=== PATIENT | male | born 1960 | race Caucasian/White ===

== ENCOUNTER 2018-01-23 22:20 | Observation (INO) | payer OTHER ==
[~2018-01-23] VITALS: Ht 172.7 cm; Wt 127.2 kg
[2018-01-23 22:49] LABS: HEMATOCRIT 38.8 % (38.0-50.0); HEMOGLOBIN 13.7 G/DL (12.5-16.6); MCH 30.9 PG (29.0-34.0); MCHC 35.3 G/DL (30.0-36.0); MCV 87.4 FL (86-99); PLATELET COUNT 259 K/uL (156-360); RBC DIS.WIDTH-CV 12.2 % (11.8-14.6); RBC DIS.WIDTH-SD 39.4 % (39-53); RED BLOOD COUNT 4.44 M/uL (4.00-5.50); WHITE BLOOD COUNT 13.8 K/uL (4.1-10.2)
[2018-01-23 22:59] LABS: CHLORIDE 104 mEq/L (99-109); POTASSIUM 4.5 mEq/L (3.7-5.4); SODIUM 139 mEq/L (136-147)
[2018-01-23 23:01] LABS: GLUCOSE 105 mg/dL (70-99)
[2018-01-23 23:05] LABS: CREATININE 1.2 mg/dL (0.6-1.3); GFR ESTIMATE (CALCULATED) > 59 mL/min/ (58.99-99999)
[2018-01-23 23:06] LABS: UREA NITROGEN (BUN) 38 mg/dL (9-23)
[2018-01-23 23:10] LABS: TROP-I INTERPRETATION NEGATIVE; TROPONIN-I < 0.01 ng/mL (0.0-0.30)
[2018-01-24 05:41] LABS: ALBUMIN 3.4 g/dL (3.2-4.8)
[2018-01-24 05:42] LABS: MAGNESIUM 1.8 mg/dL (1.3-2.7)
[2018-01-24 05:45] LABS: TOTAL BILIRUBIN 0.7 mg/dL (0.0-1.0)
[2018-01-24 05:46] LABS: ALKALINE PHOSPHATASE 65 IU/L (3-129)
[2018-01-24 05:49] LABS: AST (GOT) 50 IU/L (2-34); DIRECT BILIRUBIN 0.4 mg/dL (0.0-0.3)
[2018-01-24 05:50] LABS: ALT (GPT) 65 IU/L (3-49); LIPASE 67 U/L (1.0-51.0)
[2018-01-24 05:56] LABS: TROP-I INTERPRETATION NEGATIVE; TROPONIN-I < 0.01 ng/mL (0.0-0.30)
[2018-01-24 06:14] LABS: SERUM ETHYL ALCOHOL < 10 mg/dL
[2018-01-24] MEDS ORDERED: GLUCOPHAGE1000 MG PO (06:22)
[2018-01-24 06:51] LABS: HDL CHOLESTEROL 30 MG/DL (Desirable>=40); LDL CHOLESTEROL 41 mg/dL (Desirable<100); NON-HDL CHOLESTEROL 58 mg/dL (Desirable<160); TOTAL CHOLESTEROL 88 mg/dL (Desirable<200); TRIGLYCERIDES 83 MG/DL (Normal: <150)
[2018-01-24 07:36] VITALS: BP 164/78
[2018-01-24 09:00] VITALS: BP 163/73
[2018-01-24 09:17] LABS: BASOPHIL (%) 0.6 % (0-1); BASOPHIL COUNT 0.1 K/uL (0-0.1); EOSINOPHIL (%) 3.3 % (0-5); EOSINOPHIL COUNT 0.4 K/uL (0-0.3); HEMATOCRIT 38.6 % (38.0-50.0); HEMOGLOBIN 13.1 G/DL (12.5-16.6); LYMPHOCYTE (%) 27.5 % (15-42); LYMPHOCYTE COUNT 3.5 K/uL (1.0-2.8); MCH 30.3 PG (29.0-34.0); MCHC 33.9 G/DL (30.0-36.0); MCV 89.4 FL (86-99); MONOCYTE (%) 9.5 % (3-12); MONOCYTE COUNT 1.2 K/uL (0-0.8); NEUTROPHIL (%) 58.1 % (45-76); NEUTROPHIL COUNT 7.3 K/uL (1.8-6.4); PLATELET COUNT 249 K/uL (156-360); RBC DIS.WIDTH-CV 12.5 % (11.8-14.6); RBC DIS.WIDTH-SD 40.9 % (39-53); RED BLOOD COUNT 4.32 M/uL (4.00-5.50); WHITE BLOOD COUNT 12.6 K/uL (4.1-10.2)
[2018-01-24 10:57] LABS: ALBUMIN 3.3 G/DL (3.2-4.8); ALKALINE PHOSPHATASE 55 IU/L (3-129); ALT (GPT) 51 IU/L (3-49); AST (GOT) 41 IU/L (2-34); DIRECT BILIRUBIN 0.2 mg/dL (0.0-0.3); TOTAL BILIRUBIN 0.7 MG/DL (0.0-1.0); TOTAL PROTEIN 5.9 G/DL (6.4-8.3); TROP-I INTERPRETATION NEGATIVE; TROPONIN-I < 0.01 ng/mL (0.0-0.30)
[2018-01-24] MEDS ORDERED: ZANTAC150 MG PO (11:20)
[2018-01-24] MEDS ORDERED: PROAIR HFA8.5 GM IH (11:20)
[2018-01-24] MEDS ORDERED: VALSARTAN80 MG PO (11:21)
[2018-01-24] MEDS ORDERED: ASPIR 8181 M1 PO (11:21)
[2018-01-24] MEDS ORDERED: PRAZOSIN HCL2 MG PO (11:21)
[2018-01-24] MEDS ORDERED: ATORVASTATIN CA10 MG PO (11:21)
[2018-01-24] MEDS ORDERED: WELLBUTRIN SR150 MG PO (11:22)
[2018-01-24] MEDS ORDERED: MULTIVITAMIN1 EAC2 PO (11:22)
[2018-01-24] MEDS ORDERED: LEXAPRO20 MG PO (11:23)
[2018-01-24] MEDS ORDERED: HYDROCHLOROTH12.5 M3 PO (11:23)
[2018-01-24] MEDS ORDERED: DICLOFENAC SODI75 MG PO (11:23)
[2018-01-24] MEDS ORDERED: NOVOLIN,HU100 UNITS/ SC (11:23)
[2018-01-24] MEDS ORDERED: GABAPENTIN800 MG PO (11:23)
[2018-01-24] MEDS ORDERED: NOVOLIN,HU100 UNITS1 SC (11:24)
[2018-01-24] MEDS ORDERED: CARVEDILOL12.5 MG PO (11:24)
[2018-01-24] MEDS ORDERED: BUSPAR30 MG PO (11:24)
[2018-01-24 11:41] VITALS: BP 143/74
[2018-01-24] MEDS ORDERED: TRAMADOL HCL50 MG PO (14:12)
== END 2018-01-24 14:43 | disposition home or self-care (01) ==
LOC: EME 22:20 → EDOF 01-24 05:41 → ENRESERV 01-24 05:42 → 4SOUTH 01-24 07:19
PROVIDERS: Emergency Medicine; Hospitalist; Physician Assistant Medical; Surgery
DX: R07.89 Other chest pain (principal); K80.10 Calculus of gallbladder with chronic cholecystitis without obstruction; I47.2 Ventricular tachycardia; I25.10 Atherosclerotic heart disease of native coronary artery without angina pectoris; Z95.5 Presence of coronary angioplasty implant and graft; I25.2 Old myocardial infarction; E11.51 Type 2 diabetes mellitus with diabetic peripheral angiopathy without gangrene; Z89.511 Acquired absence of right leg below knee; Z79.4 Long term (current) use of insulin; B19.20 Unspecified viral hepatitis C without hepatic coma; E78.5 Hyperlipidemia, unspecified; M19.042 Primary osteoarthritis, left hand; M19.041 Primary osteoarthritis, right hand; I12.9 Hypertensive chronic kidney disease with stage 1 through stage 4 chronic kidney disease, or unspecified chronic kidney disease; E11.22 Type 2 diabetes mellitus with diabetic chronic kidney disease; N18.3 Chronic kidney disease, stage 3 (moderate); F10.21 Alcohol dependence, in remission; K59.00 Constipation, unspecified; E66.01 Morbid (severe) obesity due to excess calories; Z68.41 Body mass index [BMI] 40.0-44.9, adult; F43.10 Post-traumatic stress disorder, unspecified; F32.9 Major depressive disorder, single episode, unspecified; F41.1 Generalized anxiety disorder; Z86.31 Personal history of diabetic foot ulcer; Z87.891 Personal history of nicotine dependence; Z83.3 Family history of diabetes mellitus; Z82.49 Family history of ischemic heart disease and other diseases of the circulatory system
CPT/HCPCS: 71046; 71275; 74174; 76705; 80048; 80061; 80076; 82948; 83690; 83735; 84484; 85025; 85027; 93005; 93306; 99281; 99285; G0378; G0480; J1650; J1815; J3010; J7030; J7040